=== PATIENT | male | born 1975 | race African-American/Black ===

== ENCOUNTER 2016-08-07 03:46 | Emergency (ER) | payer MEDICAID | END 2016-08-07 04:59 | disposition home or self-care (01) | LOC: ER 03:46 | DX: K91.841 Postprocedural hemorrhage of a digestive system organ or structure following other procedure (principal) ==

== ENCOUNTER 2016-08-11 16:37 | Emergency (ER) | payer MEDICAID | END 2016-08-11 18:37 | disposition home or self-care (01) | LOC: FASTR 16:37 | DX: K62.89 Other specified diseases of anus and rectum (principal) ==